=== PATIENT | female | born 1955 ===

== ENCOUNTER 2017-09-29 11:45 | Emergency (ER) | payer SELFPAY ==
--- NOTE | 2017-09-29 13:44 | RAD REPORT ---
EXAM DESCRIPTION: RAD - Lumbar Spine 3 Views - 09/29/2017 1:26 pm CLINICAL HISTORY: Back pain FINDINGS: The alignment of the lumbar spine is satisfactory. The bones are osteoporotic. Mild compression involves the superior endplate of the L1 vertebral body. The age is indeterminate bu t it does has more of the appearance of being chronic than acute. If clinically indicated further awa luation with MRI could be obtained. Mild chronic compression deformity involves the T11 vertebral body
--- NOTE | 2017-09-29 14:40 | EDPHYS ---
Physician Documentation [facility] Name: Yu Cade Age: 62 yrs Sex: Female : 1955 Arrival Date: 09/29/2017 Time: 11:50 Bed 10 Private MD: None, None ED Physician Diallo Yousif HPI: 09/29 13:08 This 62 yrs old Unknown Female presents to ER via Ambulatory with complaints of Back rn Pain. 13:08 The patient presents with pain that is chronic. The symptoms are located in the low rn back. Onset: The symptoms/episode began/occurred 3 week(s) ago. The pain does not radiate. Associated signs and symptoms: Pertinent negatives: abdominal pain, chest pain, fever, hematuria, incontinence, numbness, tingling, urinary retention, weakness. Modifying factors: The patient symptoms are alleviated by remaining still, the patient symptoms are aggravated by movement. Severity of symptoms: At their worst the symptoms were moderate, in the emergency department the symptoms have improved. The patient has experienced similar episodes in the past. The patient has not recently seen a physician. Historical: - Allergies: 11:56 Aspirin; hb - Home Meds: 11:57 amlodipine 10 mg tab 1 tab once daily [Active]; Lisinopril Oral [Active]; Omeprazole hb Oral [Active]; - PMHx: 11:57 Hypertension; hb - Immunization history:: Adult Immunizations up to date. - Social history:: Smoking status: Patient uses tobacco products, smokes one-half pack cigarettes per day. - Ebola Screening: : No symptoms or risks identified at this time. - Family history:: not pertinent. - Hospitalizations: : No recent hospitalization is reported. ROS: 13:08 Constitutional: Negative for fever, chills, and weight loss, Eyes: Negative for injury, rn pain, redness, and discharge, Cardiovascular: Negative for chest pain, palpitations, and edema, Respiratory: Negative for shortness of breath, cough, wheezing, and pleuritic chest pain, Abdomen/GI: Negative for abdominal pain, nausea, vomiting, diarrhea, and constipation, Back: + pain, no injury MS/Extremity: Negative for injury and deformity, Skin: Negative for injury, rash, and discoloration, Neuro: Negative for headache, weakness, numbness, tingling, and seizure. Exam: 13:08 Constitutional: This is a well developed, well nourished patient who is awake, alert, rn and in no acute distress. Abdomen/GI: Soft, non-tender, with normal bowel sounds. No distension or tympany. No guarding or rebound. No evidence of tenderness throughout. Back: No spinal tenderness. No costovertebral tenderness. Painful ROM, isolated to right perilumbar area with tenderness to muscles Skin: Warm, dry with normal turgor. Normal color with no rashes, no lesions, and no evidence of cellulitis. MS/ Extremity: Pulses equal, no cyanosis. Neurovascular intact. Full, normal range of motion. Equal circumference. Neuro: Awake and alert, GCS 15, oriented to person, place, time, and situation. Cranial nerves II-XII grossly intact. Motor strength 5/5 in all extremities. Sensory grossly intact. Vital Signs: 11:55 BP 130 / 90; Pulse 94; Resp 15; Temp 98.2; Pulse Ox 98% on R/A; Pain 9/10; hb MDM: 12:13 Patient medically screened. rn 14:11 Differential diagnosis: arthritis, chronic back pain, Fatigue Fracture Osteoarthritis rn sprain, vertebral fracture. Data reviewed: vital signs, nurses notes, lab test result(s), radiologic studies, plain films, and as a result, I will discharge patient. Counseling: I had a detailed discussion with the patient and/or guardian regarding: the historical points, exam findings, and any diagnostic results supporting the discharge/admit diagnosis, lab results, radiology results, the need for outpatient follow up, to return to the emergency department if symptoms worsen or persist or if there are any questions or concerns that arise at home. Special discussion: I discussed with the patient/guardian in detail that at this point there is no indication for admission to the hospital. It is understood, however, that if the symptoms persist or worsen the patient needs to return immediately for re-evaluation. 09/29 12:34 Order name: Urine Dipstick--Ancillary (enter results) eb 09/29 12:22 Order name: XRAY Lumbar Spine (3 Views) rn 09/29 12:22 Order name: Urine Dipstick-Ancillary (obtain specimen); Complete Time: 12:32 rn 09/29 13:44 Order name: RAD; Complete Time: 14:10 EDMS 09/29 14:10 Order name: Diet Regular; Complete Time: 14:10 ss Administered Medications: No medications were administered Disposition: 09/29/17 14:39 Discharged to Home. Impression: Low back pain, Muscle spasm of back. - Condition is Stable. - Discharge Instructions: Back Pain, Adult, Muscle Cramps and Spasms. - Prescriptions for Cyclobenzaprine 10 mg Oral Tablet - take 1 tablet by ORAL route every 8-12 hours As needed; 15 tablet. - Medication Reconciliation Form, Thank You Letter, Antibiotic Education, Prescription Opioid Use form. - Follow up: Private Physician; When: As needed; Reason: Recheck today's complaints, Re-evaluation by your physician. - Problem is an ongoing problem. - Symptoms have improved. Signatures: Dispatcher [employer] EDMS Diallo Yousif MD MD rn Smirch, Shelby, RN RN ss Baxter, Heather, RN RN Corrections: (The following items were deleted from the chart) 11:57 11:56 Allergies: No Known Allergies; hb 14:52 14:39 09/29/2017 14:39 Discharged to Home. Impression: Low back pain; Muscle spasm of ss back. Condition is Stable. Forms are Medication Reconciliation Form, Thank You Letter, Antibiotic Education, Prescription Opioid Use. Follow up: Private Physician; When: As needed; Reason: Recheck today's complaints, Re-evaluation by your physician. Problem is an ongoing problem. Symptoms have improved. rn
--- NOTE | 2017-09-29 14:40 | ER ---
Nurse's Notes [facility] Name: Yu Cade Age: 62 yrs Sex: Female : 1955 Arrival Date: 09/29/2017 Time: 11:50 Bed 10 Private MD: None, None Diagnosis: Low back pain;Muscle spasm of back Presentation: 09/29 11:54 Presenting complaint: Patient states: Low back pain x 3 weeks. Denies injury. hb Transition of care: patient was not received from another setting of care. Onset of symptoms was September 29, 2017. Care prior to arrival: Medication(s) given: Tylenol, at 0700. 11:54 Method Of Arrival: Ambulatory hb 11:54 Acuity: CARLOS 4 hb Historical: - Allergies: 11:56 Aspirin; hb - Home Meds: 11:57 amlodipine 10 mg tab 1 tab once daily [Active]; Lisinopril Oral [Active]; Omeprazole hb Oral [Active]; - PMHx: 11:57 Hypertension; hb - Immunization history:: Adult Immunizations up to date. - Social history:: Smoking status: Patient uses tobacco products, smokes one-half pack cigarettes per day. - Ebola Screening: : No symptoms or risks identified at this time. - Family history:: not pertinent. - Hospitalizations: : No recent hospitalization is reported. Vital Signs: 11:55 BP 130 / 90; Pulse 94; Resp 15; Temp 98.2; Pulse Ox 98% on R/A; Pain 9/10; hb ED Course: 11:50 Patient arrived in ED. sb2 11:51 None, None is Private Physician. sb2 11:55 Triage completed. hb 11:57 Arm band placed on right wrist. hb 12:13 Diallo Yousif MD is Attending Physician. rn 14:46 Cuca Mata RN is Primary Nurse. ss 14:48 No provider procedures requiring assistance completed. Patient did not have IV access ss during this emergency room visit. Administered Medications: No medications were administered Outcome: 14:39 Discharge ordered by . rn 14:48 Discharged to home ambulatory. ss 14:48 Condition: good 14:48 Discharge instructions given to patient, family, Instructed on discharge instructions, follow up and referral plans. medication usage, Demonstrated understanding of instructions, follow-up care, medications, Prescriptions given X 1. 14:52 Patient left the ED. ss Signatures: Diallo Yousif MD MD rn Smirch, Shelby, RN RN ss Chanda Caruso RN RN Rita Santizo sb2 Corrections: (The following items were deleted from the chart) 11:57 11:56 Allergies: No Known Allergies; hb hb
[2017-09-29 16:10] LABS: Urine Blood NEGATIVE (NEG); Urine Glucose NEGATIVE (NEG); Urine Protein NEGATIVE (NEG); Urine pH 6.5 (5.0-7.0)
== END 2017-09-29 14:52 | disposition home or self-care (01) ==
LOC: ER 11:45
DX: M62.830 Muscle spasm of back (principal); I10 Essential (primary) hypertension; F17.210 Nicotine dependence, cigarettes, uncomplicated; Z88.6 Allergy status to analgesic agent
CPT/HCPCS: 72100; 81003; 99282